=== PATIENT | male | born 1965 | race Two or more races ===

== ENCOUNTER 2020-11-26 19:53 | Inpatient (IN) | payer MEDICAID, OTHER ==
[~2020-11-26] VITALS: Ht 182.9 cm; Wt 118.6 kg
[2020-11-26] MEDS ORDERED: ACETAMINOPHEN 325 MG TAB PO ONE (20:00)
[2020-11-26] MEDS ORDERED: ACETAMINOPHEN 500 MG TAB PO ONE (20:30)
[2020-11-26 22:03] LABS: Albumin 3.2 g/dL (3.4-5.0); Anion Gap 10 (5-15); Blood Urea Nitrogen 8 mg/dL (7-18); Calcium 7.9 mg/dL (8.5-10.1); Carbon Dioxide 22 mmol/L (21-32); Chloride 100 mmol/L (98-107); Glucose 120 mg/dL (74-106); Magnesium 2.3 mg/dL (1.6-2.6); Sodium 132 mmol/L (136-145)
[2020-11-26 22:06] LABS: INR 0.93 (0.9-1.15); Partial Thromboplastin Time 30.2 sec (23.0-31.2)
[2020-11-26 22:07] LABS: Alanine Aminotransferase 103 U/L (16-61); Alkaline Phosphatase 91 U/L (45-117); Aspartate Aminotransferase 124 U/L (15-37); BUN/Creatinine Ratio 9.8; Bilirubin, Total 0.6 mg/dL (0.2-1.0); GFR African American 125 mL/min; GFR Non-African American 104 mL/min; Total Protein 7.5 g/dL (6.4-8.2)
[2020-11-26] MEDS ORDERED: NITROGLYCERIN 0.4 MG SL TAB SL PRN (23:30)
[2020-11-26] MEDS ORDERED: MORPHINE SULF INJ 2 MG/ML SYRINGE 1ML IV PRN (23:30)
[2020-11-26] MEDS ORDERED: DOCUSATE SOD 100 MG CAP PO PRN (23:30)
[2020-11-26] MEDS ORDERED: ONDANSETRON HCL 4 MG/2 ML VIAL IV PRN (23:30)
[2020-11-26] MEDS ORDERED: ACETAMINOPHEN 325 MG TAB PO PRN (23:30)
[2020-11-26 23:33] LABS: Basophils # (auto) 0 10 ^3/uL (0-0.2); Basophils % (auto) 0.3 % (0.0-2.0); Eosinophils # (auto) 0 10 ^3/uL (0-0.8); Hematocrit 34.7 % (41.0-53.0); Hemoglobin 11.9 g/dL (13.5-17.5); Lymphocytes # (auto) 0.3 10 ^3/uL (0.4-5.4); Lymphocytes % (auto) 6.3 % (10.0-50.0); Mean Corpuscular Hemoglobin 28.6 pg (28.0-32.0); Mean Corpuscular Hgb Conc. 34.2 g/dL (32.0-36.0); Mean Corpuscular Volume 83.6 fL (80.0-100.0); Monocytes # (auto) 0.2 10 ^3/uL (0-1.3); Neutrophils # (auto) 3.6 10 ^3/uL (1.6-8.6); Neutrophils % (auto) 89.4 % (37.0-80.0); Nucleated Red Blood Cells % 0.1 %; Platelet Count (auto) 152 10^3/uL (140-450); Red Blood Cells 4.15 10^6/uL (4.5-5.90); Red Cell Distribution Width 13.5 % (11.8-14.3)
[2020-11-27] VITALS (7 sets, daily range): BP systolic 110–121; BP diastolic 65–75
[2020-11-27] MEDS: SODIUM CHLORIDE 0.9% 1,000 ML IV SCH ×2 (00:42→16:21)
[2020-11-27] MEDS: DOXYCYCLINE 100MG/250ML 250 ML IV SCH ×3 (00:42→21:27)
[2020-11-27 05:43] LABS: Potassium 3.9 mmol/L (3.5-5.1)
[2020-11-27 05:50] LABS: Bilirubin, Total 0.7 mg/dL (0.2-1.0); Calcium 7.8 mg/dL (8.5-10.1); Magnesium 2.4 mg/dL (1.6-2.6); Total Protein 6.8 g/dL (6.4-8.2)
[2020-11-27 06:12] LABS: Basophils # (auto) 0 10 ^3/uL (0-0.2); Basophils % (auto) 0.4 % (0.0-2.0); Eosinophils # (auto) 0 10 ^3/uL (0-0.8); Hematocrit 35.9 % (41.0-53.0); Hemoglobin 12.2 g/dL (13.5-17.5); Lymphocytes # (auto) 0.5 10 ^3/uL (0.4-5.4); Lymphocytes % (auto) 13.3 % (10.0-50.0); Mean Corpuscular Hemoglobin 28.6 pg (28.0-32.0); Mean Corpuscular Volume 84.1 fL (80.0-100.0); Monocytes # (auto) 0.2 10 ^3/uL (0-1.3); Monocytes % (auto) 5.3 % (0.0-12.0); Neutrophils # (auto) 3.1 10 ^3/uL (1.6-8.6); Nucleated Red Blood Cells % 0.1 %; Platelet Count (auto) 147 10^3/uL (140-450); Red Blood Cells 4.27 10^6/uL (4.5-5.90); Red Cell Distribution Width 14.3 % (11.8-14.3); White Blood Cell 3.8 10^3/uL (4.4-10.8)
[2020-11-27] MEDS ORDERED: guaiFENesin 200 MG/10 ML UD PO PRN (09:15)
[2020-11-27] MEDS ORDERED: REMDESIVIR PER PHARMACY 0 ML IV SCH (09:15)
[2020-11-27] MEDS: MULTIPLE VITAMIN TAB PO SCH (10:05)
[2020-11-27] MEDS: ZINC SULFATE 220mg CAP or TAB PO SCH (10:05)
[2020-11-27] MEDS: DexAMETHasone SOD PHOS 10MG/1ML VIAL INJ IV SCH (10:05)
[2020-11-27] MEDS: ENOXAPARIN SOD 40 MG/0.4 ML SYRINGE SC SCH ×2 (10:05→21:28)
[2020-11-27] MEDS: ASCORBIC ACID 1,000 MG TAB PO SCH (10:05)
[2020-11-27] MEDS: FAMOTIDINE 20 MG TAB PO SCH ×2 (10:05→21:28)
[2020-11-27] MEDS: CHOLECALCIFEROL (VITD3) 2,000 UNIT CAP/TAB PO SCH (10:06)
[2020-11-27] MEDS: BUDESONIDE (INHALATION) 180 MCG IH IN SCH ×2 (10:29→21:58)
[2020-11-27] MEDS ORDERED: REMDESIVIR 200 MG in NS 210ml LOADING DOSE ADULT IV ONE ×2 (12:30→14:00)
[2020-11-27 19:21] LABS: Urine Bacteria NONE SEEN /hpf (None Seen); Urine Blood Negative /uL (Negative); Urine Mucus FEW (None Seen); Urine Specific Gravity 1.021 (1.001-1.035); Urine WBC 2 /hpf (0 - 3)
[2020-11-27] MEDS: HYDROcodone-ACET 5/325MG TAB PO PRN (21:28)
[2020-11-28] VITALS (8 sets, daily range): BP systolic 112–129; BP diastolic 69–80
[2020-11-28] MEDS: BUDESONIDE (INHALATION) 180 MCG IH IN SCH ×2 (06:54→22:45)
[2020-11-28 07:08] LABS: Albumin 2.9 g/dL (3.4-5.0); BUN/Creatinine Ratio 19.4
[2020-11-28 07:21] LABS: Bilirubin, Total 0.6 mg/dL (0.2-1.0)
[2020-11-28 07:22] LABS: Total Protein 7.2 g/dL (6.4-8.2)
[2020-11-28 07:27] LABS: Basophils # (auto) 0.1 10 ^3/uL (0-0.2); Eosinophils # (auto) 0 10 ^3/uL (0-0.8); Hematocrit 35.1 % (41.0-53.0); Hemoglobin 11.9 g/dL (13.5-17.5); Lymphocytes # (auto) 0.3 10 ^3/uL (0.4-5.4); Lymphocytes % (auto) 6.8 % (10.0-50.0); Mean Corpuscular Hemoglobin 28.5 pg (28.0-32.0); Mean Corpuscular Hgb Conc. 33.8 g/dL (32.0-36.0); Mean Corpuscular Volume 84.3 fL (80.0-100.0); Monocytes # (auto) 0.3 10 ^3/uL (0-1.3); Monocytes % (auto) 6.4 % (0.0-12.0); Neutrophils # (auto) 3.5 10 ^3/uL (1.6-8.6); Neutrophils % (auto) 84.8 % (37.0-80.0); Nucleated Red Blood Cells % 0.3 %; Platelet Count (auto) 185 10^3/uL (140-450); Red Blood Cells 4.16 10^6/uL (4.5-5.90); Red Cell Distribution Width 14.1 % (11.8-14.3); White Blood Cell 4.2 10^3/uL (4.4-10.8)
[2020-11-28] MEDS: MULTIPLE VITAMIN TAB PO SCH (08:24)
[2020-11-28] MEDS: ZINC SULFATE 220mg CAP or TAB PO SCH (08:24)
[2020-11-28] MEDS: guaiFENesin 200 MG/10 ML UD PO SCH ×4 (08:24→20:55)
[2020-11-28] MEDS: ASCORBIC ACID 1,000 MG TAB PO SCH (08:24)
[2020-11-28] MEDS: ENOXAPARIN SOD 40 MG/0.4 ML SYRINGE SC SCH ×2 (08:25→20:56)
[2020-11-28] MEDS: SODIUM CHLORIDE 0.9% 1,000 ML IV SCH (08:25)
[2020-11-28] MEDS: CHOLECALCIFEROL (VITD3) 2,000 UNIT CAP/TAB PO SCH (08:25)
[2020-11-28] MEDS: FAMOTIDINE 20 MG TAB PO SCH ×2 (08:25→20:55)
[2020-11-28] MEDS: DexAMETHasone SOD PHOS 10MG/1ML VIAL INJ IV SCH (08:26)
[2020-11-28] MEDS: DOXYCYCLINE 100MG/250ML 250 ML IV SCH ×2 (09:21→20:55)
[2020-11-28] MEDS: REMDESIVIR 100mg 100 MG in SODIUM CHL 0.9% 230 ML IV SCH (15:35)
[2020-11-29] MEDS: guaiFENesin 200 MG/10 ML UD PO SCH ×6 (00:19→20:07)
[2020-11-29] MEDS: SODIUM CHLORIDE 0.9% 1,000 ML IV SCH (01:55)
[2020-11-29 04:54] VITALS: BP 133/86
[2020-11-29] MEDS: HYDROcodone-ACET 5/325MG TAB PO PRN (05:43)
[2020-11-29 06:35] LABS: Potassium 3.8 mmol/L (3.5-5.1)
[2020-11-29 06:44] LABS: BUN/Creatinine Ratio 19.4; Bilirubin, Total 0.9 mg/dL (0.2-1.0); Calcium 8.1 mg/dL (8.5-10.1); Total Protein 7.4 g/dL (6.4-8.2)
[2020-11-29 08:23] VITALS: BP 114/79
[2020-11-29] MEDS: BUDESONIDE (INHALATION) 180 MCG IH IN SCH ×3 (10:00→22:50)
[2020-11-29] MEDS: ALBUTEROL SULF HFA 90MCG INH 200DOSE IN PRN ×2 (10:00→22:45)
[2020-11-29] MEDS ORDERED: IOHEXOL 350 MG/ML 100ML IJ ONE (10:34)
[2020-11-29] MEDS: FAMOTIDINE 20 MG TAB PO SCH ×2 (11:54→22:09)
[2020-11-29] MEDS: DOXYCYCLINE 100MG/250ML 250 ML IV SCH ×2 (11:54→22:10)
[2020-11-29] MEDS: ZINC SULFATE 220mg CAP or TAB PO SCH (11:54)
[2020-11-29] MEDS: DexAMETHasone SOD PHOS 10MG/1ML VIAL INJ IV SCH (11:54)
[2020-11-29] MEDS: MULTIPLE VITAMIN TAB PO SCH (11:54)
[2020-11-29] MEDS: ASCORBIC ACID 1,000 MG TAB PO SCH (11:55)
[2020-11-29] MEDS: CHOLECALCIFEROL (VITD3) 2,000 UNIT CAP/TAB PO SCH (11:55)
[2020-11-29] MEDS: ENOXAPARIN SOD 40 MG/0.4 ML SYRINGE SC SCH ×2 (11:55→22:09)
[2020-11-29 13:00] VITALS: BP 134/78
[2020-11-29] MEDS ORDERED: FUROSEMIDE 40 MG/4 ML VIAL IV ONE (13:30)
[2020-11-29] MEDS ORDERED: POTASSIUM CHL 10 Meq TABLET PO ONE (13:30)
[2020-11-29] MEDS: REMDESIVIR 100mg 100 MG in SODIUM CHL 0.9% 230 ML IV SCH (16:04)
[2020-11-29 16:47] VITALS: BP 135/79
[2020-11-29 21:32] VITALS: BP 135/79
[2020-11-29 22:00] VITALS: BP 95/59
[2020-11-30] MEDS: guaiFENesin 200 MG/10 ML UD PO SCH ×6 (00:07→20:03)
[2020-11-30 05:00] VITALS: BP 95/56
[2020-11-30 06:23] LABS: Calcium 8.2 mg/dL (8.5-10.1); Potassium 3.7 mmol/L (3.5-5.1)
[2020-11-30 06:26] LABS: BUN/Creatinine Ratio 19.7; Bilirubin, Total 0.8 mg/dL (0.2-1.0); Total Protein 7.1 g/dL (6.4-8.2)
[2020-11-30 07:09] LABS: Basophils # (auto) 0 10 ^3/uL (0-0.2); Basophils % (auto) 0.2 % (0.0-2.0); Eosinophils # (auto) 0 10 ^3/uL (0-0.8); Eosinophils % (auto) 0.1 % (0.0-7.0); Hematocrit 36.5 % (41.0-53.0); Hemoglobin 12.3 g/dL (13.5-17.5); Lymphocytes # (auto) 0.3 10 ^3/uL (0.4-5.4); Lymphocytes % (auto) 5.2 % (10.0-50.0); Mean Corpuscular Hemoglobin 28.3 pg (28.0-32.0); Mean Corpuscular Hgb Conc. 33.8 g/dL (32.0-36.0); Mean Corpuscular Volume 83.8 fL (80.0-100.0); Monocytes # (auto) 0.4 10 ^3/uL (0-1.3); Monocytes % (auto) 7.5 % (0.0-12.0); Platelet Count (auto) 290 10^3/uL (140-450); Red Blood Cells 4.35 10^6/uL (4.5-5.90); Red Cell Distribution Width 13.6 % (11.8-14.3); White Blood Cell 5.7 10^3/uL (4.4-10.8)
[2020-11-30 08:25] VITALS: BP 112/71
[2020-11-30] MEDS: LORazepam 0.5 MG TAB PO PRN (08:43)
[2020-11-30] MEDS: ALBUTEROL SULF HFA 90MCG INH 200DOSE IN PRN ×2 (09:46→20:39)
[2020-11-30] MEDS: BUDESONIDE (INHALATION) 180 MCG IH IN SCH ×2 (09:47→20:39)
[2020-11-30] MEDS: DexAMETHasone SOD PHOS 10MG/1ML VIAL INJ IV SCH (10:43)
[2020-11-30] MEDS: DOXYCYCLINE 100MG/250ML 250 ML IV SCH ×2 (10:44→22:11)
[2020-11-30] MEDS: FUROSEMIDE 40 MG/4 ML VIAL IV SCH (10:44)
[2020-11-30] MEDS: SENNA 8.6 MG TAB PO SCH (10:45)
[2020-11-30] MEDS: MULTIPLE VITAMIN TAB PO SCH (10:45)
[2020-11-30] MEDS: FAMOTIDINE 20 MG TAB PO SCH ×2 (10:45→22:12)
[2020-11-30] MEDS: CHOLECALCIFEROL (VITD3) 2,000 UNIT CAP/TAB PO SCH (10:45)
[2020-11-30] MEDS: ZINC SULFATE 220mg CAP or TAB PO SCH (10:45)
[2020-11-30] MEDS: ASCORBIC ACID 1,000 MG TAB PO SCH (10:45)
[2020-11-30] MEDS: POTASSIUM CHL 10 Meq TABLET PO SCH (10:45)
[2020-11-30] MEDS: ENOXAPARIN SOD 40 MG/0.4 ML SYRINGE SC SCH ×2 (10:46→22:12)
[2020-11-30 12:53] VITALS: BP 109/69
[2020-11-30] MEDS ORDERED: LORATADINE 10 MG TAB PO ONE (15:00)
[2020-11-30] MEDS: REMDESIVIR 100mg 100 MG in SODIUM CHL 0.9% 230 ML IV SCH (15:04)
[2020-11-30 17:00] VITALS: BP 112/64
[2020-11-30 22:00] VITALS: BP 107/59
[2020-12-01] MEDS: guaiFENesin 200 MG/10 ML UD PO SCH ×6 (00:47→20:23)
[2020-12-01 04:57] VITALS: BP 133/81
[2020-12-01 06:15] LABS: Potassium 3.8 mmol/L (3.5-5.1)
[2020-12-01 06:20] LABS: Albumin 2.8 g/dL (3.4-5.0); Calcium 8.1 mg/dL (8.5-10.1)
[2020-12-01 06:22] LABS: Bilirubin, Total 0.8 mg/dL (0.2-1.0); Total Protein 6.9 g/dL (6.4-8.2)
[2020-12-01 08:37] VITALS: BP 106/67
[2020-12-01] MEDS: ALBUTEROL SULF HFA 90MCG INH 200DOSE IN PRN ×2 (10:10→19:38)
[2020-12-01] MEDS: BUDESONIDE (INHALATION) 180 MCG IH IN SCH ×2 (10:10→19:38)
[2020-12-01] MEDS: POTASSIUM CHL 10 Meq TABLET PO SCH (10:15)
[2020-12-01] MEDS: LORATADINE 10 MG TAB PO SCH (10:15)
[2020-12-01] MEDS: DexAMETHasone SOD PHOS 10MG/1ML VIAL INJ IV SCH (10:15)
[2020-12-01] MEDS: DOXYCYCLINE 100MG/250ML 250 ML IV SCH (10:15)
[2020-12-01] MEDS: ZINC SULFATE 220mg CAP or TAB PO SCH (10:15)
[2020-12-01] MEDS: FUROSEMIDE 40 MG/4 ML VIAL IV SCH (10:15)
[2020-12-01] MEDS: ASCORBIC ACID 1,000 MG TAB PO SCH (10:16)
[2020-12-01] MEDS: MULTIPLE VITAMIN TAB PO SCH (10:16)
[2020-12-01] MEDS: ENOXAPARIN SOD 40 MG/0.4 ML SYRINGE SC SCH ×2 (10:16→21:42)
[2020-12-01] MEDS: CHOLECALCIFEROL (VITD3) 2,000 UNIT CAP/TAB PO SCH (10:16)
[2020-12-01] MEDS: FAMOTIDINE 20 MG TAB PO SCH ×2 (10:16→21:42)
[2020-12-01] MEDS: SENNA 8.6 MG TAB PO SCH (10:16)
[2020-12-01 12:26] VITALS: BP 107/68
[2020-12-01] MEDS ORDERED: FLUTICASONE PROP NASAL SPR 0.05 % (50MCG) 16GM EACHNOSTRI ONE (13:30)
[2020-12-01] MEDS: SALINE 0.65 % NASAL SPRAY 45ML BOTTLE EACHNOSTRI SCH ×3 (14:17→21:42)
[2020-12-01] MEDS: REMDESIVIR 100mg 100 MG in SODIUM CHL 0.9% 230 ML IV SCH (15:26)
[2020-12-01 16:32] VITALS: BP 103/67
[2020-12-01] MEDS: HYDROcodone-ACET 5/325MG TAB PO PRN (21:55)
[2020-12-01] MEDS ORDERED: FLUTICASONE PROP NASAL SPR 0.05 % (50MCG) 16GM EACHNOSTRI SCH (22:00)
[2020-12-01 22:23] VITALS: BP 113/66
[2020-12-02] VITALS (9 sets, daily range): BP systolic 100–123; BP diastolic 53–81
[2020-12-02] MEDS: guaiFENesin 200 MG/10 ML UD PO SCH ×7 (04:24→23:33)
[2020-12-02] MEDS: SALINE 0.65 % NASAL SPRAY 45ML BOTTLE EACHNOSTRI SCH ×4 (06:05→21:24)
[2020-12-02] MEDS: ALBUTEROL SULF HFA 90MCG INH 200DOSE IN PRN ×2 (07:56→19:10)
[2020-12-02] MEDS: BUDESONIDE (INHALATION) 180 MCG IH IN SCH ×2 (07:57→19:10)
[2020-12-02] MEDS: LORATADINE 10 MG TAB PO SCH (08:00)
[2020-12-02] MEDS: FAMOTIDINE 20 MG TAB PO SCH ×2 (08:00→21:24)
[2020-12-02] MEDS: ZINC SULFATE 220mg CAP or TAB PO SCH (08:00)
[2020-12-02] MEDS: SENNA 8.6 MG TAB PO SCH (08:00)
[2020-12-02] MEDS: POTASSIUM CHL 10 Meq TABLET PO SCH (08:01)
[2020-12-02] MEDS: ENOXAPARIN SOD 40 MG/0.4 ML SYRINGE SC SCH ×2 (08:01→21:24)
[2020-12-02] MEDS: MULTIPLE VITAMIN TAB PO SCH (08:01)
[2020-12-02] MEDS: CHOLECALCIFEROL (VITD3) 2,000 UNIT CAP/TAB PO SCH (08:01)
[2020-12-02] MEDS: DexAMETHasone SOD PHOS 10MG/1ML VIAL INJ IV SCH (08:01)
[2020-12-02] MEDS: ASCORBIC ACID 1,000 MG TAB PO SCH (08:02)
[2020-12-02] MEDS: FUROSEMIDE 40 MG/4 ML VIAL IV SCH (09:24)
[2020-12-02] MEDS ORDERED: REMDESIVIR PER PHARMACY 0 ML IV SCH (14:15)
[2020-12-02] MEDS ORDERED: methylPREDNISolone SOD SUCC 40 MG/ML VL IV ONE (15:00)
[2020-12-02] MEDS ORDERED: REMDESIVIR 100mg 100 MG in SODIUM CHL 0.9% 230 ML IV SCH (15:00)
[2020-12-02] MEDS ORDERED: diphenhdrAMINE HCL 50 MG/1 ML VL IV ONE (15:00)
[2020-12-02] MEDS ORDERED: ACETAMINOPHEN 650 mg PER 20.3 mL UD PO ONE (15:00)
[2020-12-02] MEDS: TOCILIZUMAB 400 MG in SODIUM CHL 0.9% 80 ML IV SCH (17:56)
[2020-12-02] MEDS: HYDROcodone-ACET 5/325MG TAB PO PRN (23:35)
[2020-12-02] MEDS: LORazepam 0.5 MG TAB PO PRN (23:35)
[2020-12-03] VITALS (60 sets, daily range): BP systolic 69–220; BP diastolic 37–129
[2020-12-03] MEDS: guaiFENesin 200 MG/10 ML UD PO SCH ×6 (03:45→23:53)
[2020-12-03] MEDS: HYDROcodone-ACET 5/325MG TAB PO PRN (03:59)
[2020-12-03] MEDS: ALBUTEROL SULF 2.5 MG/0.5ML(0.5%) NEB SOLN NEB SCH ×3 (06:31→22:41)
[2020-12-03] MEDS: BUDESONIDE (INHALATION) 0.5 MG/2 ML NEB NEB SCH ×2 (06:32→22:41)
[2020-12-03] MEDS: IPRATROPIUM BROM 0.5 MG/2.5ML INH SOL NEB SCH ×3 (06:32→22:41)
[2020-12-03 06:33] LABS: Albumin 2.3 g/dL (3.4-5.0); Calcium 7.9 mg/dL (8.5-10.1); Potassium 4.7 mmol/L (3.5-5.1)
[2020-12-03 06:37] LABS: Bilirubin, Total 0.6 mg/dL (0.2-1.0); Total Protein 6.6 g/dL (6.4-8.2)
[2020-12-03 06:39] LABS: BUN/Creatinine Ratio 35.7
[2020-12-03] MEDS: SALINE 0.65 % NASAL SPRAY 45ML BOTTLE EACHNOSTRI SCH (06:46)
[2020-12-03 06:50] LABS: CRP High Sensitivity 11.6 mg/dL (< 0.3)
[2020-12-03] MEDS: LORATADINE 10 MG TAB PO SCH (09:35)
[2020-12-03] MEDS: ZINC SULFATE 220mg CAP or TAB PO SCH (09:35)
[2020-12-03] MEDS: DexAMETHasone SOD PHOS 10MG/1ML VIAL INJ IV SCH (09:35)
[2020-12-03] MEDS: FUROSEMIDE 40 MG/4 ML VIAL IV SCH ×2 (09:35→17:38)
[2020-12-03] MEDS: POTASSIUM CHL 10 Meq TABLET PO SCH (09:36)
[2020-12-03] MEDS: ASCORBIC ACID 1,000 MG TAB PO SCH (09:36)
[2020-12-03] MEDS: MULTIPLE VITAMIN TAB PO SCH (09:36)
[2020-12-03] MEDS: CHOLECALCIFEROL (VITD3) 2,000 UNIT CAP/TAB PO SCH (09:36)
[2020-12-03] MEDS: ENOXAPARIN SOD 40 MG/0.4 ML SYRINGE SC SCH ×2 (09:36→22:23)
[2020-12-03] MEDS: SENNA 8.6 MG TAB PO SCH (09:36)
[2020-12-03] MEDS: FAMOTIDINE 20 MG TAB PO SCH (09:36)
[2020-12-03] MEDS ORDERED: diphenhdrAMINE HCL 50 MG/1 ML VL IV ONE ×2 (10:00→14:00)
[2020-12-03] MEDS ORDERED: ACETAMINOPHEN 650 mg PER 20.3 mL UD PO ONE ×2 (10:00→14:00)
[2020-12-03] MEDS: TOCILIZUMAB 400 MG in SODIUM CHL 0.9% 80 ML IV SCH (10:30)
[2020-12-03] MEDS ORDERED: ETOMIDATE (2MG/ML) 20ML VIAL IV ONE (10:49)
[2020-12-03] MEDS ORDERED: ROCURONIUM 10MG/ML 10ML VIAL IV ONE (10:49)
[2020-12-03] MEDS ORDERED: MIDAZOLAM DRIP 50 mg/50mL 50 ML IV ONE (10:50)
[2020-12-03] MEDS ORDERED: PROPOFOL 100 ML IV ONE (10:50)
[2020-12-03] MEDS ORDERED: fentaNYL Drip 2500mCg/250mlNS 250 ML IV ONE (10:50)
[2020-12-03] MEDS: MIDAZOLAM DRIP 50 mg/50mL 50 ML IV SCH ×2 (11:00→23:29)
[2020-12-03] MEDS: ATRACURIUM BESYLATE 1,000 MG in D5W 5% 150 ML IV SCH (11:00)
[2020-12-03] MEDS ORDERED: fentaNYL Drip 2500mCg/250mlNS 250 ML IV SCH (11:00)
[2020-12-03] MEDS: PROPOFOL 100 ML IV SCH ×3 (11:00→20:59)
[2020-12-03] MEDS: NOREPINEPHRINE 8 MG/250ML KIT 250 ML IV SCH (11:00)
[2020-12-03] MEDS ORDERED: PHENYLEPHRINE IV 250 ML IV ONE (12:12)
[2020-12-03] MEDS ORDERED: methylPREDNISolone SOD SUCC 40 MG/ML VL IV ONE (14:00)
[2020-12-03] MEDS ORDERED: TOCILIZUMAB 400 MG in SODIUM CHL 0.9% 80 ML IV ONE (14:30)
[2020-12-03] MEDS ORDERED: ATROPINE SULF 1 MG/10ml SYR IV ONE (18:03)
[2020-12-03] MEDS ORDERED: EPINEPHrine HCL 1 MG/10 ML SYRG IV ONE (18:03)
[2020-12-03] MEDS: fentaNYL Drip 2500mCg/250mlNS 250 ML IV SCH (22:22)
[2020-12-03] MEDS: FAMOTIDINE (10MG/ML) 2ML VL IV SCH (22:23)
[2020-12-03] MEDS: ACETAMINOPHEN 650 MG RECT SUPP PR PRN (22:25)
[2020-12-04] VITALS (105 sets, daily range): BP systolic 73–161; BP diastolic 42–97
[2020-12-04] MEDS: PROPOFOL 100 ML IV SCH ×5 (00:05→23:03)
[2020-12-04] MEDS: guaiFENesin 200 MG/10 ML UD PO SCH ×4 (04:00→16:00)
[2020-12-04 04:39] LABS: Eosinophils # (auto) 0 10 ^3/uL (0-0.8); Hemoglobin 12.6 g/dL (13.5-17.5); Nucleated Red Blood Cells % 0.1 %
[2020-12-04 04:40] LABS: Basophils # (auto) 0 10 ^3/uL (0-0.2); Basophils % (auto) 0.1 % (0.0-2.0); Hematocrit 35.9 % (41.0-53.0); Lymphocytes # (auto) 0.2 10 ^3/uL (0.4-5.4); Lymphocytes % (auto) 0.9 % (10.0-50.0); Mean Corpuscular Hemoglobin 32.9 pg (28.0-32.0); Mean Corpuscular Volume 93.9 fL (80.0-100.0); Monocytes # (auto) 1.4 10 ^3/uL (0-1.3); Monocytes % (auto) 6.5 % (0.0-12.0); Neutrophils # (auto) 19.8 10 ^3/uL (1.6-8.6); Neutrophils % (auto) 92.5 % (37.0-80.0); Platelet Count (auto) 638 10^3/uL (140-450); Red Blood Cells 3.82 10^6/uL (4.5-5.90); Red Cell Distribution Width 13.8 % (11.8-14.3); White Blood Cell 21.4 10^3/uL (4.4-10.8)
[2020-12-04 05:03] LABS: Albumin 2.6 g/dL (3.4-5.0); BUN/Creatinine Ratio 18.6; Bilirubin, Total 0.6 mg/dL (0.2-1.0); Calcium 7.4 mg/dL (8.5-10.1); Total Protein 6.9 g/dL (6.4-8.2)
[2020-12-04 05:12] LABS: Potassium 6.2 mmol/L (3.5-5.1)
[2020-12-04] MEDS ORDERED: InsuLIN REG 1unit/0.01ml Soln (100units/ml) IV ONE (05:45)
[2020-12-04] MEDS ORDERED: CALCIUM GLUC 1,000mg/50ml-NS 50 ML IV ONE (05:45)
[2020-12-04] MEDS ORDERED: DEXTROSE (50%) 50ML SYRG IV ONE (05:45)
[2020-12-04] MEDS ORDERED: SODIUM BICARBONATE 8.4 % INJ 50ML VIAL IV ONE ×2 (05:45→08:08)
[2020-12-04] MEDS: FUROSEMIDE 40 MG/4 ML VIAL IV SCH ×2 (06:00→18:00)
[2020-12-04] MEDS: BUDESONIDE (INHALATION) 0.5 MG/2 ML NEB NEB SCH ×2 (08:03→22:30)
[2020-12-04] MEDS: ALBUTEROL SULF 2.5 MG/0.5ML(0.5%) NEB SOLN NEB SCH ×3 (08:03→22:30)
[2020-12-04] MEDS: IPRATROPIUM BROM 0.5 MG/2.5ML INH SOL NEB SCH ×3 (08:03→22:30)
[2020-12-04] MEDS: FAMOTIDINE (10MG/ML) 2ML VL IV SCH ×2 (10:00→22:00)
[2020-12-04] MEDS: POTASSIUM CHL 10 Meq TABLET PO SCH (10:00)
[2020-12-04] MEDS: SENNA 8.6 MG TAB PO SCH (10:00)
[2020-12-04] MEDS: ENOXAPARIN SOD 40 MG/0.4 ML SYRINGE SC SCH ×2 (10:00→22:00)
[2020-12-04] MEDS: ZINC SULFATE 220mg CAP or TAB PO SCH (10:00)
[2020-12-04] MEDS: MULTIPLE VITAMIN TAB PO SCH (10:00)
[2020-12-04] MEDS: DexAMETHasone SOD PHOS 10MG/1ML VIAL INJ IV SCH (10:00)
[2020-12-04] MEDS: CHOLECALCIFEROL (VITD3) 2,000 UNIT CAP/TAB PO SCH (10:00)
[2020-12-04] MEDS: ASCORBIC ACID 1,000 MG TAB PO SCH (10:00)
[2020-12-04] MEDS: NOREPINEPHRINE 8 MG/250ML KIT 250 ML IV SCH ×2 (11:00→23:58)
[2020-12-04] MEDS: ATRACURIUM BESYLATE 1,000 MG in D5W 5% 150 ML IV SCH ×2 (11:00→23:01)
[2020-12-04] MEDS: MIDAZOLAM DRIP 50 mg/50mL 50 ML IV SCH ×2 (19:45→23:03)
[2020-12-04] MEDS ORDERED: PHENYLEPHRINE IV 250 ML IV ONE (21:25)
[2020-12-04] MEDS ORDERED: ATRACURIUM BESYLATE (10 MG/ ML) 10 ML VIAL ONE (21:31)
[2020-12-04] MEDS: PHENYLEPHRINE IV 250 ML IV SCH (21:45)
[2020-12-04] MEDS: ACETAMINOPHEN 650 MG RECT SUPP PR PRN (22:15)
[2020-12-04] MEDS: fentaNYL Drip 2500mCg/250mlNS 250 ML IV SCH (22:43)
[2020-12-05] VITALS (107 sets, daily range): BP systolic 84–176; BP diastolic 43–104
[2020-12-05] MEDS: PHENYLEPHRINE IV 250 ML IV SCH ×3 (01:34→21:14)
[2020-12-05] MEDS: PROPOFOL 100 ML IV SCH ×4 (02:37→21:14)
[2020-12-05] MEDS: MIDAZOLAM DRIP 50 mg/50mL 50 ML IV SCH ×3 (02:37→19:57)
[2020-12-05] MEDS: NOREPINEPHRINE 8 MG/250ML KIT 250 ML IV SCH (04:37)
[2020-12-05 04:56] LABS: Hemoglobin 13.5 g/dL (13.5-17.5)
[2020-12-05] MEDS: fentaNYL Drip 2500mCg/250mlNS 250 ML IV SCH ×2 (04:56→21:15)
[2020-12-05 04:59] LABS: Hematocrit 36.4 % (41.0-53.0); Mean Corpuscular Hemoglobin 34.3 pg (28.0-32.0); Mean Corpuscular Hgb Conc. 37.1 g/dL (32.0-36.0); Mean Corpuscular Volume 92.6 fL (80.0-100.0); Platelet Count (auto) 512 10^3/uL (140-450); Red Blood Cells 3.93 10^6/uL (4.5-5.90); Red Cell Distribution Width 14.1 % (11.8-14.3); White Blood Cell 9.7 10^3/uL (4.4-10.8)
[2020-12-05 05:11] LABS: Albumin 2.3 g/dL (3.4-5.0); Calcium 7.5 mg/dL (8.5-10.1); Potassium 5.5 mmol/L (3.5-5.1)
[2020-12-05 05:18] LABS: Basophils % (manual) 0 (0.0-2.0); Blast Cells 0; Eosinophils % (manual) 0 (0-7); Myelocytes % 0; Promyelocytes % 0; Reactive Lymphocytes 0
[2020-12-05] MEDS: FUROSEMIDE 40 MG/4 ML VIAL IV SCH ×2 (05:26→18:49)
[2020-12-05 05:29] LABS: Bilirubin, Total 0.7 mg/dL (0.2-1.0); Total Protein 6.6 g/dL (6.4-8.2)
[2020-12-05] MEDS: IPRATROPIUM BROM 0.5 MG/2.5ML INH SOL NEB SCH ×3 (06:00→22:59)
[2020-12-05] MEDS: ALBUTEROL SULF 2.5 MG/0.5ML(0.5%) NEB SOLN NEB SCH ×3 (06:00→22:58)
[2020-12-05 06:10] LABS: Band Neutrophils % (manual) 23; Lymphocytes % (manual) 4 (10.0-50.0); Metamyelocytes % 1; Monocytes % (manual) 3 (0-12)
[2020-12-05] MEDS ORDERED: InsuLIN REG 1unit/0.01ml Soln (100units/ml) IV ONE (06:30)
[2020-12-05] MEDS ORDERED: SODIUM BICARBONATE 8.4% INJ 50ML SYRINGE IV ONE (06:30)
[2020-12-05] MEDS ORDERED: CALCIUM GLUC 1,000mg/50ml-NS 50 ML IV ONE (06:30)
[2020-12-05] MEDS ORDERED: SODIUM ZIRCONIUM CYCL 10 GM PAK PO ONE (06:30)
[2020-12-05] MEDS ORDERED: DEXTROSE (50%) 50ML SYRG IV ONE (06:30)
[2020-12-05] MEDS: BUDESONIDE (INHALATION) 0.5 MG/2 ML NEB NEB SCH ×2 (07:33→22:38)
[2020-12-05] MEDS: ASCORBIC ACID 1,000 MG TAB PO SCH (10:00)
[2020-12-05] MEDS: ENOXAPARIN SOD 40 MG/0.4 ML SYRINGE SC SCH ×2 (10:00→21:13)
[2020-12-05] MEDS: MULTIPLE VITAMIN TAB PO SCH (10:00)
[2020-12-05] MEDS: SENNA 8.6 MG TAB PO SCH (10:00)
[2020-12-05] MEDS: ZINC SULFATE 220mg CAP or TAB PO SCH (10:00)
[2020-12-05] MEDS: CHOLECALCIFEROL (VITD3) 2,000 UNIT CAP/TAB PO SCH (10:00)
[2020-12-05] MEDS: POTASSIUM CHL 10 Meq TABLET PO SCH (10:00)
[2020-12-05] MEDS: FAMOTIDINE (10MG/ML) 2ML VL IV SCH ×2 (10:15→21:13)
[2020-12-05] MEDS: DexAMETHasone SOD PHOS 10MG/1ML VIAL INJ IV SCH (10:15)
[2020-12-06] VITALS (109 sets, daily range): BP systolic 87–163; BP diastolic 47–96
[2020-12-06] MEDS: PROPOFOL 100 ML IV SCH ×6 (00:03→20:59)
[2020-12-06] MEDS: MIDAZOLAM DRIP 50 mg/50mL 50 ML IV SCH ×6 (00:03→22:20)
[2020-12-06 05:23] LABS: Basophils # (auto) 0 10 ^3/uL (0-0.2); Basophils % (auto) 0.3 % (0.0-2.0); Eosinophils # (auto) 0.1 10 ^3/uL (0-0.8); Eosinophils % (auto) 0.7 % (0.0-7.0); Hematocrit 35.8 % (41.0-53.0); Hemoglobin 12.3 g/dL (13.5-17.5); Lymphocytes # (auto) 0.2 10 ^3/uL (0.4-5.4); Lymphocytes % (auto) 1.9 % (10.0-50.0); Mean Corpuscular Hemoglobin 31.6 pg (28.0-32.0); Mean Corpuscular Hgb Conc. 34.5 g/dL (32.0-36.0); Mean Corpuscular Volume 91.7 fL (80.0-100.0); Monocytes # (auto) 0.3 10 ^3/uL (0-1.3); Monocytes % (auto) 3.5 % (0.0-12.0); Neutrophils # (auto) 8.1 10 ^3/uL (1.6-8.6); Neutrophils % (auto) 93.6 % (37.0-80.0); Platelet Count (auto) 362 10^3/uL (140-450); Red Cell Distribution Width 14.2 % (11.8-14.3); White Blood Cell 8.6 10^3/uL (4.4-10.8)
[2020-12-06 05:43] LABS: Calcium 7.7 mg/dL (8.5-10.1); Potassium 5.2 mmol/L (3.5-5.1)
[2020-12-06 05:46] LABS: BUN/Creatinine Ratio 21.9; Bilirubin, Total 0.5 mg/dL (0.2-1.0); Total Protein 5.9 g/dL (6.4-8.2)
[2020-12-06] MEDS: FUROSEMIDE 40 MG/4 ML VIAL IV SCH ×2 (06:00→17:41)
[2020-12-06] MEDS: PHENYLEPHRINE IV 250 ML IV SCH ×3 (06:12→23:30)
[2020-12-06] MEDS ORDERED: InsuLIN REG 1unit/0.01ml Soln (100units/ml) IV ONE (06:15)
[2020-12-06] MEDS ORDERED: SODIUM BICARBONATE 8.4% INJ 50ML SYRINGE IV ONE (06:15)
[2020-12-06] MEDS ORDERED: CALCIUM GLUC 1,000mg/50ml-NS 50 ML IV ONE (06:15)
[2020-12-06] MEDS: BUDESONIDE (INHALATION) 0.5 MG/2 ML NEB NEB SCH ×2 (07:18→22:10)
[2020-12-06] MEDS: IPRATROPIUM BROM 0.5 MG/2.5ML INH SOL NEB SCH ×3 (07:18→22:10)
[2020-12-06] MEDS: ALBUTEROL SULF 2.5 MG/0.5ML(0.5%) NEB SOLN NEB SCH ×3 (07:18→22:10)
[2020-12-06] MEDS: CHOLECALCIFEROL (VITD3) 2,000 UNIT CAP/TAB PO SCH (10:00)
[2020-12-06] MEDS: MULTIPLE VITAMIN TAB PO SCH (10:00)
[2020-12-06] MEDS: SENNA 8.6 MG TAB PO SCH (10:00)
[2020-12-06] MEDS: ASCORBIC ACID 1,000 MG TAB PO SCH (10:00)
[2020-12-06] MEDS: POTASSIUM CHL 10 Meq TABLET PO SCH (10:00)
[2020-12-06] MEDS: ZINC SULFATE 220mg CAP or TAB PO SCH (10:00)
[2020-12-06] MEDS: FAMOTIDINE (10MG/ML) 2ML VL IV SCH ×2 (10:53→20:51)
[2020-12-06] MEDS: DexAMETHasone SOD PHOS 10MG/1ML VIAL INJ IV SCH (10:53)
[2020-12-06] MEDS: ENOXAPARIN SOD 40 MG/0.4 ML SYRINGE SC SCH ×2 (10:54→20:52)
[2020-12-06] MEDS: NOREPINEPHRINE 8 MG/250ML KIT 250 ML IV SCH ×2 (11:00→22:30)
[2020-12-06] MEDS: ATRACURIUM BESYLATE 1,000 MG in D5W 5% 150 ML IV SCH (11:00)
[2020-12-06] MEDS: fentaNYL Drip 2500mCg/250mlNS 250 ML IV SCH ×2 (13:24→20:59)
[2020-12-06 13:57] LABS: BUN/Creatinine Ratio 21.3; Calcium 7.9 mg/dL (8.5-10.1); Potassium 4.6 mmol/L (3.5-5.1)
[2020-12-07] VITALS (105 sets, daily range): BP systolic 100–160; BP diastolic 56–90
[2020-12-07] MEDS: PROPOFOL 100 ML IV SCH ×4 (00:11→22:50)
[2020-12-07] MEDS: ATRACURIUM BESYLATE 1,000 MG in D5W 5% 150 ML IV SCH (00:59)
[2020-12-07] MEDS: MIDAZOLAM DRIP 50 mg/50mL 50 ML IV SCH ×4 (01:36→23:57)
[2020-12-07 04:18] LABS: Basophils # (auto) 0 10 ^3/uL (0-0.2); Basophils % (auto) 0.1 % (0.0-2.0); Eosinophils # (auto) 0.1 10 ^3/uL (0-0.8); Eosinophils % (auto) 0.6 % (0.0-7.0); Hematocrit 32.5 % (41.0-53.0); Hemoglobin 11.2 g/dL (13.5-17.5); Lymphocytes # (auto) 0.2 10 ^3/uL (0.4-5.4); Lymphocytes % (auto) 1.9 % (10.0-50.0); Mean Corpuscular Hemoglobin 30.7 pg (28.0-32.0); Mean Corpuscular Hgb Conc. 34.5 g/dL (32.0-36.0); Mean Corpuscular Volume 88.8 fL (80.0-100.0); Monocytes # (auto) 0.7 10 ^3/uL (0-1.3); Monocytes % (auto) 7.3 % (0.0-12.0); Neutrophils # (auto) 8.2 10 ^3/uL (1.6-8.6); Neutrophils % (auto) 90.1 % (37.0-80.0); Nucleated Red Blood Cells % 0.3 %; Platelet Count (auto) 282 10^3/uL (140-450); Red Blood Cells 3.66 10^6/uL (4.5-5.90); Red Cell Distribution Width 14.1 % (11.8-14.3); White Blood Cell 9.1 10^3/uL (4.4-10.8)
[2020-12-07 04:36] LABS: Albumin 2.1 g/dL (3.4-5.0); Calcium 7.6 mg/dL (8.5-10.1); Potassium 4.8 mmol/L (3.5-5.1)
[2020-12-07 04:39] LABS: BUN/Creatinine Ratio 25.9; Bilirubin, Total 0.4 mg/dL (0.2-1.0); Total Protein 5.5 g/dL (6.4-8.2)
[2020-12-07] MEDS: fentaNYL Drip 2500mCg/250mlNS 250 ML IV SCH ×2 (05:00→22:15)
[2020-12-07] MEDS: FUROSEMIDE 40 MG/4 ML VIAL IV SCH (05:36)
[2020-12-07] MEDS: ALBUTEROL SULF 2.5 MG/0.5ML(0.5%) NEB SOLN NEB SCH ×3 (06:23→18:36)
[2020-12-07] MEDS: IPRATROPIUM BROM 0.5 MG/2.5ML INH SOL NEB SCH ×3 (06:23→18:36)
[2020-12-07] MEDS: PHENYLEPHRINE IV 250 ML IV SCH ×3 (07:50→22:48)
[2020-12-07] MEDS: FAMOTIDINE (10MG/ML) 2ML VL IV SCH ×2 (09:55→22:47)
[2020-12-07] MEDS: DexAMETHasone SOD PHOS 10MG/1ML VIAL INJ IV SCH (09:55)
[2020-12-07] MEDS: ENOXAPARIN SOD 40 MG/0.4 ML SYRINGE SC SCH ×2 (09:55→22:48)
[2020-12-07] MEDS: BUDESONIDE (INHALATION) 0.5 MG/2 ML NEB NEB SCH ×2 (11:11→18:36)
[2020-12-07] MEDS ORDERED: PPN PER PHARMACY 0 ML IV SCH (14:00)
[2020-12-07] MEDS ORDERED: TPN PER PHARMACY 0 ML IV SCH (15:15)
[2020-12-07] MEDS ORDERED: AMINO ACID INFUSION IN D10W 1,000 ML IV NR (20:00)
[2020-12-07] MEDS: InsuLIN REG 1unit/0.01ml Soln (100units/ml) SC SCH (23:56)
[2020-12-07] MEDS: ACCU-CHEK COMFORT CURVE STRIP VI SCH (23:57)
[2020-12-08] VITALS (107 sets, daily range): BP systolic 95–153; BP diastolic 54–84
[2020-12-08] MEDS ORDERED: DEXTROSE (50%) 50ML SYRG IV SCH
[2020-12-08] MEDS: ACCU-CHEK COMFORT CURVE STRIP VI SCH ×3 (06:00→18:00)
[2020-12-08] MEDS: InsuLIN REG 1unit/0.01ml Soln (100units/ml) SC SCH ×3 (06:00→18:00)
[2020-12-08 07:00] LABS: Hematocrit 32.6 % (41.0-53.0); Hemoglobin 11.3 g/dL (13.5-17.5); Mean Corpuscular Hemoglobin 30.8 pg (28.0-32.0); Mean Corpuscular Hgb Conc. 34.7 g/dL (32.0-36.0); Mean Corpuscular Volume 88.7 fL (80.0-100.0); Platelet Count (auto) 494 10^3/uL (140-450); Red Blood Cells 3.68 10^6/uL (4.5-5.90); Red Cell Distribution Width 14.4 % (11.8-14.3); White Blood Cell 11.4 10^3/uL (4.4-10.8)
[2020-12-08 07:04] LABS: Basophils % (manual) 0 (0.0-2.0); Blast Cells 0; Myelocytes % 0; Promyelocytes % 0; Reactive Lymphocytes 0
[2020-12-08 07:15] LABS: Albumin 2.1 g/dL (3.4-5.0); Calcium 7.7 mg/dL (8.5-10.1); Magnesium 3.2 mg/dL (1.6-2.6); Potassium 5.5 mmol/L (3.5-5.1)
[2020-12-08] MEDS: ALBUTEROL SULF 2.5 MG/0.5ML(0.5%) NEB SOLN NEB SCH ×3 (07:16→22:36)
[2020-12-08] MEDS: BUDESONIDE (INHALATION) 0.5 MG/2 ML NEB NEB SCH ×2 (07:17→22:36)
[2020-12-08] MEDS: IPRATROPIUM BROM 0.5 MG/2.5ML INH SOL NEB SCH ×3 (07:17→22:37)
[2020-12-08 07:21] LABS: BUN/Creatinine Ratio 37.9; Bilirubin, Total 0.4 mg/dL (0.2-1.0); Phosphorus 3.8 mg/dL (2.5-4.90); Pre Albumin 27.7 mg/dL (20.0-40.0)
[2020-12-08 07:37] LABS: Band Neutrophils % (manual) 10; Eosinophils % (manual) 2 (0-7); Lymphocytes % (manual) 5 (10.0-50.0); Metamyelocytes % 1; Monocytes % (manual) 3 (0-12)
[2020-12-08] MEDS: PHENYLEPHRINE IV 250 ML IV SCH ×2 (08:50→17:10)
[2020-12-08] MEDS: DexAMETHasone SOD PHOS 10MG/1ML VIAL INJ IV SCH (09:55)
[2020-12-08] MEDS: FAMOTIDINE (10MG/ML) 2ML VL IV SCH ×2 (10:11→22:03)
[2020-12-08] MEDS: ENOXAPARIN SOD 40 MG/0.4 ML SYRINGE SC SCH ×2 (10:11→22:03)
[2020-12-08] MEDS: FUROSEMIDE 40 MG/4 ML VIAL IV SCH (10:11)
[2020-12-08] MEDS: NOREPINEPHRINE 8 MG/250ML KIT 250 ML IV SCH (11:00)
[2020-12-08] MEDS ORDERED: ROCURONIUM 10MG/ML 10ML VIAL IV ONE (12:00)
[2020-12-08 12:51] LABS: INR 0.96 (0.9-1.15); Partial Thromboplastin Time 23.3 sec (23.0-31.2)
[2020-12-08] MEDS ORDERED: levoFLOXacin 750MG 150 ML IV ONE (15:15)
[2020-12-08] MEDS: ROCURONIUM 10MG/ML 10ML VIAL IV PRN (15:33)
[2020-12-08] MEDS: PROPOFOL 100 ML IV SCH ×2 (19:30→22:00)
[2020-12-08] MEDS: TPN PER PHARMACY IV NR ×8 (20:00)
[2020-12-08] MEDS: MIDAZOLAM DRIP 50 mg/50mL 50 ML IV SCH ×2 (20:00→23:40)
[2020-12-08] MEDS: fentaNYL Drip 2500mCg/250mlNS 250 ML IV SCH (20:30)
[2020-12-09] VITALS (107 sets, daily range): BP systolic 83–156; BP diastolic 49–82
[2020-12-09] MEDS: PROPOFOL 100 ML IV SCH ×8 (02:38→23:50)
[2020-12-09] MEDS: MIDAZOLAM DRIP 50 mg/50mL 50 ML IV SCH ×7 (02:38→23:49)
[2020-12-09] MEDS: NOREPINEPHRINE 8 MG/250ML KIT 250 ML IV SCH (03:00)
[2020-12-09 04:31] LABS: Hematocrit 31.6 % (41.0-53.0); Hemoglobin 10.6 g/dL (13.5-17.5); Mean Corpuscular Hemoglobin 30.6 pg (28.0-32.0); Mean Corpuscular Hgb Conc. 33.5 g/dL (32.0-36.0); Mean Corpuscular Volume 91.3 fL (80.0-100.0); Platelet Count (auto) 278 10^3/uL (140-450); Red Blood Cells 3.46 10^6/uL (4.5-5.90); Red Cell Distribution Width 14.3 % (11.8-14.3)
[2020-12-09 04:42] LABS: Calcium 7.8 mg/dL (8.5-10.1); Potassium 3.9 mmol/L (3.5-5.1)
[2020-12-09 04:45] LABS: Basophils % (manual) 0 (0.0-2.0); Blast Cells 0; Promyelocytes % 0; Reactive Lymphocytes 0
[2020-12-09 04:47] LABS: Albumin 2.2 g/dL (3.4-5.0); BUN/Creatinine Ratio 41.4; Bilirubin, Total 0.5 mg/dL (0.2-1.0); Magnesium 2.8 mg/dL (1.6-2.6); Phosphorus 4.3 mg/dL (2.5-4.90); Total Protein 5.6 g/dL (6.4-8.2)
[2020-12-09] MEDS: ACCU-CHEK COMFORT CURVE STRIP VI SCH ×4 (05:51→18:14)
[2020-12-09] MEDS: InsuLIN REG 1unit/0.01ml Soln (100units/ml) SC SCH ×4 (05:53→18:00)
[2020-12-09 06:42] LABS: Band Neutrophils % (manual) 11; Eosinophils % (manual) 3 (0-7); Lymphocytes % (manual) 4 (10.0-50.0); Metamyelocytes % 2; Monocytes % (manual) 3 (0-12); Myelocytes % 4
[2020-12-09] MEDS: PHENYLEPHRINE IV 250 ML IV SCH ×3 (07:41→18:10)
[2020-12-09] MEDS: BUDESONIDE (INHALATION) 0.5 MG/2 ML NEB NEB SCH ×2 (10:00→22:09)
[2020-12-09] MEDS: ALBUTEROL SULF 2.5 MG/0.5ML(0.5%) NEB SOLN NEB SCH ×3 (10:00→22:09)
[2020-12-09] MEDS: IPRATROPIUM BROM 0.5 MG/2.5ML INH SOL NEB SCH ×3 (10:00→22:09)
[2020-12-09] MEDS: fentaNYL Drip 2500mCg/250mlNS 250 ML IV SCH ×2 (10:03→19:00)
[2020-12-09] MEDS: FUROSEMIDE 40 MG/4 ML VIAL IV SCH (10:53)
[2020-12-09] MEDS: levoFLOXacin 750MG 150 ML IV SCH (10:53)
[2020-12-09] MEDS: FAMOTIDINE (10MG/ML) 2ML VL IV SCH ×2 (10:53→22:03)
[2020-12-09] MEDS: ENOXAPARIN SOD 40 MG/0.4 ML SYRINGE SC SCH ×2 (10:54→22:04)
[2020-12-09] MEDS: METOCLOPRAMIDE HCL 5MG/ml INJ 2ml VIAL IV SCH ×2 (13:53→18:14)
[2020-12-09] MEDS: TPN PER PHARMACY IV NR ×8 (19:57)
[2020-12-09] MEDS ORDERED: TPN PER PHARMACY IV NR ×9 (20:00)
[2020-12-09] MEDS: SODIUM CHLOR 0.9% PF (SALINE LOCK) 10ML VIAL/SYR IV SCH (22:04)
[2020-12-10] VITALS (106 sets, daily range): BP systolic 99–158; BP diastolic 53–91
[2020-12-10] MEDS: METOCLOPRAMIDE HCL 5MG/ml INJ 2ml VIAL IV SCH ×5 (00:02→23:51)
[2020-12-10] MEDS: ACCU-CHEK COMFORT CURVE STRIP VI SCH ×5 (00:32→23:54)
[2020-12-10] MEDS: InsuLIN REG 1unit/0.01ml Soln (100units/ml) SC SCH ×5 (00:34→23:52)
[2020-12-10] MEDS: PROPOFOL 100 ML IV SCH ×6 (01:27→20:29)
[2020-12-10] MEDS: PHENYLEPHRINE IV 250 ML IV SCH ×3 (02:30→19:10)
[2020-12-10] MEDS: MIDAZOLAM DRIP 50 mg/50mL 50 ML IV SCH ×6 (03:01→20:30)
[2020-12-10 04:40] LABS: Hematocrit 33.9 % (41.0-53.0); Mean Corpuscular Hgb Conc. 32.5 g/dL (32.0-36.0); Mean Corpuscular Volume 86.2 fL (80.0-100.0); Platelet Count (auto) 274 10^3/uL (140-450); Red Blood Cells 3.93 10^6/uL (4.5-5.90); Red Cell Distribution Width 14.1 % (11.8-14.3); White Blood Cell 12.4 10^3/uL (4.4-10.8)
[2020-12-10] MEDS: fentaNYL Drip 2500mCg/250mlNS 250 ML IV SCH ×3 (04:41→20:28)
[2020-12-10 04:54] LABS: Basophils % (manual) 0 (0.0-2.0); Blast Cells 0; Eosinophils % (manual) 0 (0-7); Promyelocytes % 0; Reactive Lymphocytes 0
[2020-12-10 04:58] LABS: Albumin 2.2 g/dL (3.4-5.0); Calcium 7.8 mg/dL (8.5-10.1); Magnesium 2.5 mg/dL (1.6-2.6); Potassium 4.3 mmol/L (3.5-5.1)
[2020-12-10 05:02] LABS: BUN/Creatinine Ratio 39.9; Bilirubin, Total 0.6 mg/dL (0.2-1.0); Phosphorus 5.9 mg/dL (2.5-4.90); Total Protein 5.7 g/dL (6.4-8.2)
[2020-12-10 05:23] LABS: Band Neutrophils % (manual) 7; Lymphocytes % (manual) 3 (10.0-50.0); Metamyelocytes % 4; Monocytes % (manual) 3 (0-12); Myelocytes % 1
[2020-12-10] MEDS: ALBUTEROL SULF 2.5 MG/0.5ML(0.5%) NEB SOLN NEB SCH ×3 (06:25→22:14)
[2020-12-10] MEDS: IPRATROPIUM BROM 0.5 MG/2.5ML INH SOL NEB SCH ×3 (06:25→22:14)
[2020-12-10] MEDS: BUDESONIDE (INHALATION) 0.5 MG/2 ML NEB NEB SCH ×2 (09:45→22:14)
[2020-12-10] MEDS: SODIUM CHLOR 0.9% PF (SALINE LOCK) 10ML VIAL/SYR IV SCH ×2 (10:00→21:59)
[2020-12-10] MEDS: FUROSEMIDE 40 MG/4 ML VIAL IV SCH (10:23)
[2020-12-10] MEDS: FAMOTIDINE (10MG/ML) 2ML VL IV SCH ×2 (10:23→21:59)
[2020-12-10] MEDS: ENOXAPARIN SOD 40 MG/0.4 ML SYRINGE SC SCH ×2 (10:24→21:59)
[2020-12-10] MEDS: levoFLOXacin 750MG 150 ML IV SCH (10:24)
[2020-12-10] MEDS: NOREPINEPHRINE 8 MG/250ML KIT 250 ML IV SCH (11:00)
[2020-12-10] MEDS ORDERED: TPN PER PHARMACY IV NR ×10 (20:00)
[2020-12-10] MEDS: ROCURONIUM 10MG/ML 10ML VIAL IV PRN (23:20)
[2020-12-11] VITALS (97 sets, daily range): BP systolic 90–144; BP diastolic 35–90
[2020-12-11] MEDS ORDERED: dilTIAZem 25 MG/5 ML VIAL IV ONE (00:15)
[2020-12-11] MEDS: MIDAZOLAM DRIP 50 mg/50mL 50 ML IV SCH ×5 (01:04→22:24)
[2020-12-11] MEDS: PROPOFOL 100 ML IV SCH ×5 (03:01→21:21)
[2020-12-11] MEDS: PHENYLEPHRINE IV 250 ML IV SCH ×2 (03:30→20:10)
[2020-12-11] MEDS: fentaNYL Drip 2500mCg/250mlNS 250 ML IV SCH ×3 (04:18→20:09)
[2020-12-11 04:35] LABS: Albumin 2.1 g/dL (3.4-5.0); BUN/Creatinine Ratio 37.5; Calcium 8.2 mg/dL (8.5-10.1); Magnesium 2.3 mg/dL (1.6-2.6); Potassium 4.8 mmol/L (3.5-5.1)
[2020-12-11 04:57] LABS: Bilirubin, Total 0.6 mg/dL (0.2-1.0); Total Protein 6.5 g/dL (6.4-8.2)
[2020-12-11 05:19] LABS: Phosphorus 5.1 mg/dL (2.5-4.90)
[2020-12-11] MEDS: METOCLOPRAMIDE HCL 5MG/ml INJ 2ml VIAL IV SCH ×3 (06:23→18:05)
[2020-12-11] MEDS: InsuLIN REG 1unit/0.01ml Soln (100units/ml) SC SCH ×3 (06:24→18:27)
[2020-12-11] MEDS: ACCU-CHEK COMFORT CURVE STRIP VI SCH ×3 (06:24→18:25)
[2020-12-11] MEDS: ROCURONIUM 10MG/ML 10ML VIAL IV PRN (08:00)
[2020-12-11] MEDS: BUDESONIDE (INHALATION) 0.5 MG/2 ML NEB NEB SCH ×2 (09:24→22:29)
[2020-12-11] MEDS: ALBUTEROL SULF 2.5 MG/0.5ML(0.5%) NEB SOLN NEB SCH ×3 (09:24→22:29)
[2020-12-11] MEDS: IPRATROPIUM BROM 0.5 MG/2.5ML INH SOL NEB SCH ×3 (09:24→22:29)
[2020-12-11] MEDS: levoFLOXacin 750MG 150 ML IV SCH (10:40)
[2020-12-11] MEDS: FAMOTIDINE (10MG/ML) 2ML VL IV SCH ×2 (10:42→21:58)
[2020-12-11] MEDS: ENOXAPARIN SOD 40 MG/0.4 ML SYRINGE SC SCH ×2 (10:42→21:59)
[2020-12-11] MEDS: FUROSEMIDE 40 MG/4 ML VIAL IV SCH (10:42)
[2020-12-11] MEDS: SODIUM CHLOR 0.9% PF (SALINE LOCK) 10ML VIAL/SYR IV SCH ×2 (10:42→21:59)
[2020-12-11] MEDS: NOREPINEPHRINE 8 MG/250ML KIT 250 ML IV SCH (11:00)
[2020-12-11] MEDS ORDERED: ACETAMINOPHEN 650 mg PER 20.3 mL UD GT PRN (17:15)
[2020-12-11] MEDS ORDERED: TPN PER PHARMACY IV NR ×6 (20:00)
[2020-12-12] VITALS (87 sets, daily range): BP systolic 75–131; BP diastolic 34–75
[2020-12-12] MEDS: PROPOFOL 100 ML IV SCH ×7 (00:05→16:37)
[2020-12-12] MEDS: InsuLIN REG 1unit/0.01ml Soln (100units/ml) SC SCH ×5 (00:06→23:56)
[2020-12-12] MEDS: METOCLOPRAMIDE HCL 5MG/ml INJ 2ml VIAL IV SCH ×5 (00:06→23:57)
[2020-12-12] MEDS: ACCU-CHEK COMFORT CURVE STRIP VI SCH ×4 (00:06→23:57)
[2020-12-12] MEDS: MIDAZOLAM DRIP 50 mg/50mL 50 ML IV SCH ×5 (01:01→15:30)
[2020-12-12] MEDS: NOREPINEPHRINE 8 MG/250ML KIT 250 ML IV SCH (02:04)
[2020-12-12] MEDS: fentaNYL Drip 2500mCg/250mlNS 250 ML IV SCH ×2 (03:55→12:06)
[2020-12-12 04:26] LABS: Albumin 2.1 g/dL (3.4-5.0); Calcium 8.3 mg/dL (8.5-10.1)
[2020-12-12 04:30] LABS: Bilirubin, Total 0.9 mg/dL (0.2-1.0); Total Protein 6.2 g/dL (6.4-8.2)
[2020-12-12] MEDS: PHENYLEPHRINE IV 250 ML IV SCH ×4 (04:30→20:14)
[2020-12-12 04:42] LABS: Magnesium 1.9 mg/dL (1.6-2.6); Phosphorus 1.8 mg/dL (2.5-4.90)
[2020-12-12 04:45] LABS: Potassium 5.6 mmol/L (3.5-5.1)
[2020-12-12] MEDS ORDERED: SODIUM ZIRCONIUM CYCL 10 GM PAK PO ONE (06:00)
[2020-12-12] MEDS: IPRATROPIUM BROM 0.5 MG/2.5ML INH SOL NEB SCH ×3 (06:31→19:04)
[2020-12-12] MEDS: ALBUTEROL SULF 2.5 MG/0.5ML(0.5%) NEB SOLN NEB SCH ×3 (06:31→19:04)
[2020-12-12] MEDS: BUDESONIDE (INHALATION) 0.5 MG/2 ML NEB NEB SCH ×2 (06:32→19:03)
[2020-12-12] MEDS ORDERED: SODIUM PHOSPHATES 20 MEQ in SODIUM CHL 0.9% 100 ML IV ONE (10:30)
[2020-12-12] MEDS: levoFLOXacin 750MG 150 ML IV SCH (10:36)
[2020-12-12] MEDS: FUROSEMIDE 40 MG/4 ML VIAL IV SCH (10:37)
[2020-12-12] MEDS: FAMOTIDINE (10MG/ML) 2ML VL IV SCH (10:37)
[2020-12-12] MEDS: ENOXAPARIN SOD 40 MG/0.4 ML SYRINGE SC SCH ×2 (10:37→21:51)
[2020-12-12] MEDS: SODIUM CHLOR 0.9% PF (SALINE LOCK) 10ML VIAL/SYR IV SCH ×2 (10:38→21:51)
[2020-12-12] MEDS ORDERED: TPN PER PHARMACY IV NR ×7 (20:00)
[2020-12-13] VITALS (102 sets, daily range): BP systolic 83–140; BP diastolic 34–75
[2020-12-13 04:17] LABS: Hematocrit 31.1 % (41.0-53.0); Hemoglobin 10.1 g/dL (13.5-17.5); Mean Corpuscular Hemoglobin 27.7 pg (28.0-32.0); Mean Corpuscular Hgb Conc. 32.4 g/dL (32.0-36.0); Mean Corpuscular Volume 85.4 fL (80.0-100.0); Platelet Count (auto) 322 10^3/uL (140-450); Red Blood Cells 3.65 10^6/uL (4.5-5.90); Red Cell Distribution Width 14.8 % (11.8-14.3); White Blood Cell 17.3 10^3/uL (4.4-10.8)
[2020-12-13 04:29] LABS: Basophils % (manual) 0 (0.0-2.0); Blast Cells 0; Eosinophils % (manual) 0 (0-7); Promyelocytes % 0; Reactive Lymphocytes 0
[2020-12-13 04:38] LABS: Potassium 4.9 mmol/L (3.5-5.1)
[2020-12-13 04:45] LABS: BUN/Creatinine Ratio 31.7; Bilirubin, Total 0.6 mg/dL (0.2-1.0); Magnesium 2.8 mg/dL (1.6-2.6); Phosphorus 5.5 mg/dL (2.5-4.90)
[2020-12-13] MEDS: PHENYLEPHRINE IV 250 ML IV SCH ×3 (05:22→22:10)
[2020-12-13] MEDS: ACCU-CHEK COMFORT CURVE STRIP VI SCH ×3 (05:23→17:38)
[2020-12-13] MEDS: InsuLIN REG 1unit/0.01ml Soln (100units/ml) SC SCH ×2 (05:24→18:00)
[2020-12-13] MEDS: METOCLOPRAMIDE HCL 5MG/ml INJ 2ml VIAL IV SCH ×3 (05:28→17:37)
[2020-12-13 06:33] LABS: Band Neutrophils % (manual) 18; Lymphocytes % (manual) 9 (10.0-50.0); Metamyelocytes % 1; Monocytes % (manual) 7 (0-12); Myelocytes % 2
[2020-12-13] MEDS: FAMOTIDINE (10MG/ML) 2ML VL IV SCH (07:46)
[2020-12-13] MEDS: FUROSEMIDE 40 MG/4 ML VIAL IV SCH (07:46)
[2020-12-13] MEDS: ENOXAPARIN SOD 40 MG/0.4 ML SYRINGE SC SCH (07:46)
[2020-12-13] MEDS: levoFLOXacin 750MG 150 ML IV SCH (07:46)
[2020-12-13] MEDS: SODIUM CHLOR 0.9% PF (SALINE LOCK) 10ML VIAL/SYR IV SCH ×2 (07:47→21:45)
[2020-12-13] MEDS: MIDAZOLAM DRIP 50 mg/50mL 50 ML IV SCH ×3 (07:47→17:38)
[2020-12-13] MEDS: PROPOFOL 100 ML IV SCH ×3 (07:48→23:15)
[2020-12-13] MEDS: IPRATROPIUM BROM 0.5 MG/2.5ML INH SOL NEB SCH ×3 (08:47→22:05)
[2020-12-13] MEDS: BUDESONIDE (INHALATION) 0.5 MG/2 ML NEB NEB SCH ×2 (08:47→22:05)
[2020-12-13] MEDS: ALBUTEROL SULF 2.5 MG/0.5ML(0.5%) NEB SOLN NEB SCH ×3 (08:47→22:05)
[2020-12-13] MEDS: NOREPINEPHRINE 8 MG/250ML KIT 250 ML IV SCH ×2 (09:48→22:15)
[2020-12-13] MEDS: fentaNYL Drip 2500mCg/250mlNS 250 ML IV SCH (12:19)
[2020-12-13] MEDS ORDERED: MEROPENEM 500MG IVPB 50 ML IV ONE (13:30)
[2020-12-13] MEDS ORDERED: LINEZOLID 600MG/300ML 300 ML IV ONE (13:45)
[2020-12-13] MEDS ORDERED: TPN PER PHARMACY IV NR ×7 (20:00)
[2020-12-13] MEDS ORDERED: MEROPENEM 500MG IVPB 50 ML IV SCH (22:00)
[2020-12-13] MEDS: LINEZOLID 600MG/300ML 300 ML IV SCH (23:45)
[2020-12-14] VITALS (47 sets, daily range): BP systolic 43–119; BP diastolic 28–74
[2020-12-14] MEDS: MIDAZOLAM DRIP 50 mg/50mL 50 ML IV SCH ×3 (00:12→09:59)
[2020-12-14] MEDS: METOCLOPRAMIDE HCL 5MG/ml INJ 2ml VIAL IV SCH ×2 (01:10→06:18)
[2020-12-14] MEDS: InsuLIN REG 1unit/0.01ml Soln (100units/ml) SC SCH ×2 (01:11→06:19)
[2020-12-14] MEDS: fentaNYL Drip 2500mCg/250mlNS 250 ML IV SCH (02:49)
[2020-12-14] MEDS: NOREPINEPHRINE 8 MG/250ML KIT 250 ML IV SCH (03:10)
[2020-12-14] MEDS: PROPOFOL 100 ML IV SCH (04:33)
[2020-12-14 04:42] LABS: Hemoglobin 10.3 g/dL (13.5-17.5); Red Blood Cells 3.71 10^6/uL (4.5-5.90)
[2020-12-14 04:45] LABS: Hematocrit 32.9 % (41.0-53.0); Mean Corpuscular Hemoglobin 27.7 pg (28.0-32.0); Mean Corpuscular Hgb Conc. 31.3 g/dL (32.0-36.0); Mean Corpuscular Volume 88.7 fL (80.0-100.0); Platelet Count (auto) 488 10^3/uL (140-450)
[2020-12-14 05:04] LABS: Magnesium 3.2 mg/dL (1.6-2.6)
[2020-12-14 05:08] LABS: BUN/Creatinine Ratio 27.9; Total Protein 6.3 g/dL (6.4-8.2)
[2020-12-14 05:32] LABS: Phosphorus 9.3 mg/dL (2.5-4.90); Potassium 6.4 mmol/L (3.5-5.1)
[2020-12-14 05:33] LABS: White Blood Cell 30.4 10^3/uL (4.4-10.8)
[2020-12-14 05:35] LABS: Basophils % (manual) 0 (0.0-2.0); Blast Cells 0; Eosinophils % (manual) 0 (0-7); Promyelocytes % 0; Reactive Lymphocytes 0
[2020-12-14 05:54] LABS: Band Neutrophils % (manual) 27; Lymphocytes % (manual) 4 (10.0-50.0); Metamyelocytes % 2; Monocytes % (manual) 4 (0-12); Myelocytes % 5
[2020-12-14] MEDS: ALBUTEROL SULF 2.5 MG/0.5ML(0.5%) NEB SOLN NEB SCH (06:16)
[2020-12-14] MEDS: IPRATROPIUM BROM 0.5 MG/2.5ML INH SOL NEB SCH (06:16)
[2020-12-14] MEDS: BUDESONIDE (INHALATION) 0.5 MG/2 ML NEB NEB SCH (06:17)
[2020-12-14] MEDS: ACCU-CHEK COMFORT CURVE STRIP VI SCH ×2 (06:18)
[2020-12-14] MEDS: PHENYLEPHRINE IV 250 ML IV SCH ×2 (06:19→06:21)
[2020-12-14] MEDS ORDERED: SODIUM ZIRCONIUM CYCL 10 GM PAK PO ONE (06:30)
[2020-12-14] MEDS ORDERED: SODIUM BICARBONATE 8.4 % INJ 50ML VIAL IV ONE (06:30)
[2020-12-14] MEDS ORDERED: CALCIUM GLUC 1,000mg/50ml-NS 50 ML IV ONE (06:30)
[2020-12-14] MEDS ORDERED: DEXTROSE (50%) 50ML SYRG IV ONE (06:30)
[2020-12-14] MEDS ORDERED: ALBUTEROL SULF 2.5 MG/0.5ML(0.5%) NEB SOLN NEB ONE (06:30)
[2020-12-14] MEDS ORDERED: InsuLIN REG 1unit/0.01ml Soln (100units/ml) IV ONE (06:30)
[2020-12-14] MEDS ORDERED: NOREPINEPHRINE BITARTRATE 32 MG in SODIUM CHL 0.9% 218 ML IV SCH (08:45)
[2020-12-14] MEDS ORDERED: PHENYLEPHRINE INJ 80 MG in SODIUM CHL 0.9% 242 ML IV SCH (08:45)
[2020-12-14] MEDS: LINEZOLID 600MG/300ML 300 ML IV SCH (08:48)
[2020-12-14] MEDS: SODIUM CHLOR 0.9% PF (SALINE LOCK) 10ML VIAL/SYR IV SCH (09:57)
[2020-12-14] MEDS ORDERED: ENOXAPARIN SOD 40 MG/0.4 ML SYRINGE SC SCH (10:00)
[2020-12-14] MEDS ORDERED: TPN PER PHARMACY IV NR ×8 (20:00)
[2020-12-15] MEDS ORDERED: FAMOTIDINE (10MG/ML) 2ML VL IV SCH (10:00)
== END 2020-12-14 15:20 | DRG 720 ==
LOC: EDBD 19:53 → ER 19:53 → TELE 23:27 → TELE-EAST 11-27 01:04 → TELE-WESTW 12-02 10:25 → ICU CENTRL 12-02 22:42 → DOU IN ICU 12-02 23:06 → ICU WEST 12-03 14:54
PROVIDERS: ADMIT Nurse Practitioner Family; ATTEND Internal Medicine
PROC: XW033E5 Introduction of Remdesivir Anti-infective into Peripheral Vein, Percutaneous Approach, New Technology Group 5 (ICD-10-PCS; 2020-11-27)
PROC: XW13325 Transfusion of Convalescent Plasma (Nonautologous) into Peripheral Vein, Percutaneous Approach, New Technology Group 5 (ICD-10-PCS; principal; 2020-11-28)
PROC: 5A1955Z Respiratory Ventilation, Greater than 96 Consecutive Hours (ICD-10-PCS; 2020-12-03)
PROC: 0BH17EZ Insertion of Endotracheal Airway into Trachea, Via Natural or Artificial Opening (ICD-10-PCS; 2020-12-03)
PROC: 06HY33Z Insertion of Infusion Device into Lower Vein, Percutaneous Approach (ICD-10-PCS; 2020-12-03)
PROC: 02HV33Z Insertion of Infusion Device into Superior Vena Cava, Percutaneous Approach (ICD-10-PCS; 2020-12-03)
PROC: B548ZZA Ultrasonography of Superior Vena Cava, Guidance (ICD-10-PCS; 2020-12-03)
PROC: XW033H5 Introduction of Tocilizumab into Peripheral Vein, Percutaneous Approach, New Technology Group 5 (ICD-10-PCS; 2020-12-03)
PROC: 0W9B30Z Drainage of Left Pleural Cavity with Drainage Device, Percutaneous Approach (ICD-10-PCS; 2020-12-04)
PROC: 0W9930Z Drainage of Right Pleural Cavity with Drainage Device, Percutaneous Approach (ICD-10-PCS; 2020-12-04)
DX: A41.89 Other specified sepsis (principal); U07.1 COVID-19; N17.0 Acute kidney failure with tubular necrosis; R65.21 Severe sepsis with septic shock; J80 Acute respiratory distress syndrome; G93.1 Anoxic brain damage, not elsewhere classified; I46.9 Cardiac arrest, cause unspecified; J12.82 Pneumonia due to coronavirus disease 2019; E87.1 Hypo-osmolality and hyponatremia; E66.9 Obesity, unspecified; Z68.34 Body mass index [BMI] 34.0-34.9, adult; H57.02 Anisocoria; Z66 Do not resuscitate; D64.9 Anemia, unspecified; E44.1 Mild protein-calorie malnutrition; E55.9 Vitamin D deficiency, unspecified; J93.9 Pneumothorax, unspecified; F17.200 Nicotine dependence, unspecified, uncomplicated; Z83.3 Family history of diabetes mellitus; E87.5 Hyperkalemia; G93.89 Other specified disorders of brain; J98.2 Interstitial emphysema; J15.6 Pneumonia due to other Gram-negative bacteria; D89.839 Cytokine release syndrome, grade unspecified
CPT/HCPCS: 36415; 36569; 36600; 70250; 71045; 71275; 80048; 80053; 81001; 82040; 82306; 82728; 82805; 82962; 83036; 83605; 83615; 83735; 83880; 84100; 84132; 84443; 84478; 84484; 85007; 85025; 85027; 85379; 85610; 85730; 86141; 86850; 86900; 86901; 87040; 87070; 87081; 87205; 87426; 93005; 93970; 94002; 94003; 94640; 95819; C1724; G0378; J1100; J1815; J1956; J2185; J2250; J2704; J3490; J7060; J7131